=== PATIENT | female | born 1950 | race Caucasian/White ===

== ENCOUNTER → 2018-07-23 | Outpatient (CLI) | payer MEDICARE, OTHER ==
[~2018-07-23] MED LIST: ALLEGRA 180MG180 MG PO; BIOTIN1 MG PO; CALTRATE-600 W600 MG PO; CARDI-OMEGA1000 MG PO; CENTRUM1 TAB PO; CETIRIZINE PO; FLONASE NASAL S16 GM NS; MELATONIN PO; VITAMIN C1 TAB PO; [UNRECOGNIZED DRUG - OTHER]
== END ==
LOC: MC.RAD 15:37
DX: Z12.31 Encounter for screening mammogram for malignant neoplasm of breast (principal)

== ENCOUNTER → 2018-07-27 | Outpatient (CLI) | payer MEDICARE, OTHER | LOC: MC.RAD 12:57 | DX: N60.01 Solitary cyst of right breast (principal) ==

== ENCOUNTER → 2019-12-14 | Outpatient (CLI) | payer MEDICARE, OTHER | LOC: MC.RAD 13:35 | DX: Z12.31 Encounter for screening mammogram for malignant neoplasm of breast (principal) ==

== ENCOUNTER → 2020-12-14 | Outpatient (CLI) | payer MEDICARE, OTHER | LOC: MC.RAD 11:02 | DX: Z12.31 Encounter for screening mammogram for malignant neoplasm of breast (principal) ==